=== PATIENT | female | born 1955 | race Caucasian/White ===

== ENCOUNTER 2016-08-28 10:14 | Outpatient (CLI) | payer OTHER ==
--- NOTE | 2016-08-29 13:20 | PAIN CLINIC PROGRESS NOTES ---
REFERRING PHYSICIAN: Dr. David Fraser REASON FOR VISIT: I had the opportunity of following up with Velma Harrington today as an outpatient at [facility]. Her neck pain has completely resolved. At this point, she is doing very well. She has no complaints of neck pain. She has some intermittent low back pain if she drives long distances , but really, overall, I think Velma is doing very well. I did review her lumbar images and she has a small disk protrusion at T11-T12 and some spondylolytic changes of the lumbar spine but really no evidence of disk herniation or spinal neuroforaminal stenosis. PLAN: At this point, I have talked to her about back stretching exercises. I have talked her about activity pacing and use of a lumbar support pillow when driving long distances in the car and that I would be glad to follow her up if her symptoms should worsen or reoccur here at [facility]. Dr. Fraser, thank you very much for allowing me to take part in the care of this nice lady. I am very pleased with her response and that we were able to get her MRI performed. cc: Dr. David ELLISON
== END 2016-08-28 10:15 ==
LOC: OUT 10:14
PROVIDERS: ATTEND Anesthesiology Pain Medicine
DX: M54.2 Cervicalgia (principal); M54.9 Dorsalgia, unspecified
CPT/HCPCS: 99213

== ENCOUNTER 2017-03-12 10:56 | Outpatient (CLI) | payer OTHER ==
--- NOTE | 2017-03-13 11:06 | PAIN CLINIC PROGRESS NOTES ---
REASON FOR VISIT: Velma follows up with me today. She was seen 1 year ago for right-sided facet medial branch blocks at C3, C4, C5, and C6. She said she had almost a year of relief but the symptoms are returning primarily on the right side in the upper portion of the neck over C3, C4, C5, and C6. She is also complaining of pain at the cervicothoracic junction at C7 and T1. She has some complaints at the cervicothoracic junction on the left side but most of the left side of the cervical spine is not symptomatic at this point, and she has good range of motion to the left and limited range of motion to the right today on exam. ASSESSMENT: Cervical spondylosis at C3 through C7-T1. PLAN: I talked to her about repeating facet medial branch blocks and she tells me that she feels ill and that she has been having sinusitis and chest congestion and she is on Levaquin, which she began almost a month ago after having an upper tooth extracted, and she would like recover from this before having any procedure done. I am in full agreement; and at this point, I will follow her up for right-sided C3 through C7-T1 facet medial branch blocks with IV sedation or monitored anesthesia care due to pain complaints. cc: Dr. David ELLISON
== END 2017-03-12 10:57 ==
LOC: OUT 10:56
PROVIDERS: ATTEND Anesthesiology Pain Medicine
DX: M47.892 Other spondylosis, cervical region (principal)
CPT/HCPCS: 99213; G0463

== ENCOUNTER 2017-07-10 13:14 | Outpatient (CLI) | payer OTHER ==
--- NOTE | 2017-07-11 11:39 | PAIN CLINIC PROGRESS NOTES ---
REASON FOR VISIT: Ms. Harrington follow up with me today and her neck is improved, as is her thoracic spine. She underwent right-sided C4, C5, C6, C7, T1 and T2 facet medial branch blocks for widespread right-sided cervicalgia/neck pain. She also has a history of back pain and she is much better today. She says she still has some intermittent both thoracic and low back pain. I reviewed her films and she has some increased thoracic kyphosis and some right-sided T5 neural foraminal narrowing but no evidence for spinal stenosis. Some spondylolytic changes of the thoracic spine. She also has marked increased curvature of the lumbar spine with lumbar spondylolytic changes consistent with lumbar spondylosis. PLAN: At this point, I am not recommending any interventional treatment. I have recommended exercise. I have talked about activity pacing. I am going to change her from cyclobenzaprine to Robaxin and see how she does. Follow up as necessary. cc: Dr. Davdi ELLISON
== END 2017-07-10 13:15 ==
LOC: OUT 13:14
PROVIDERS: ATTEND Anesthesiology Pain Medicine
DX: M47.016 Anterior spinal artery compression syndromes, lumbar region (principal)
CPT/HCPCS: 99213

== ENCOUNTER 2018-04-08 14:38 | Outpatient (CLI) | payer OTHER ==
--- NOTE | 2018-04-08 15:27 | Diagnostic Imaging Report ---
LIBIA ABREU [facility] [id number] Pending Sale To [facility] [address] [place] [address]. [id number] Report Submission Date: Apr 08, 2018 3:21:30 PM SENIOR QUALITY MANAGER Patient Study Name: WINIFRED QUIROZ Date: Apr 08, 2018 2:44:30 PM SENIOR QUALITY MANAGER Modality Type: DX Gender: F Description: PELVIS : 53 Institution: [facility] Physician: LIBIA ABREU Examination: Plain film pelvis/hips History: PAIN IN RIGHT HIP RADIATING DOWN LEG POST FALL 3 YEARS AGO. XRAY AT TIME SHOWED NO INJURIES, PAIN CONTINUES TO GET WORSE WITH USE. (Hx) Comparison exams: None provided Findings: 3 view of the pelvis and hips demonstrate normal cortical margins. No fracture. No dislocation. Superior and inferior pubic rami and iliac wings are without abnormality. Lumbar spine degenerative changes. Pelvic phleboliths. Impression: No acute appearing osseous process. Electronically signed on Apr 08, 2018 3:21:30 PM SENIOR QUALITY MANAGER by: Delroy ELLISON
== END 2018-04-08 14:40 ==
LOC: RAD 14:38
PROVIDERS: ATTEND Anesthesiology Pain Medicine
DX: M25.551 Pain in right hip (principal); M25.552 Pain in left hip
CPT/HCPCS: 73521

== ENCOUNTER 2018-04-09 12:23 | Outpatient (CLI) | payer OTHER ==
[~2018-04-09 12:23] MED LIST: 0.9 % SODIUM CHLORIDE PF 10 ML VIAL IJ ONE; KETAMINE HCL 10 MG/ML ONE; LIDOCAINE HCL 2% PF 100MG/5ML VIAL IJ ONE; MIDAZOLAM HCL 2 MG/2 ML VIAL ONE; SALINE FLUSH 10 ML DISP.SYRIN IVF ONE; TRIAMCINOLONE ACETONID 40MG/ML VIAL ONE
--- NOTE | 2018-04-15 14:05 | CERVICAL ESI WITH FLUORO ---
SUBJECTIVE: Ms. Harrington follows up today with a history of cervical stenosis and cervical spondylosis. She is having neck pain and bilateral weakness in the upper arms. She presents for a cervical epidural steroid injection. She is very nervous and anxious today. She is afraid she will not be able to hold still and is requesting sedation. I am going to request monitored anesthesia care for anxiety and discomfort. ANESTHESIA: Monitored anesthesia care. OBJECTIVE: Right C6-C7 epidural steroid injection with fluoroscopic guidance. DESCRIPTION OF THE PROCEDURE: The risks and benefits were discussed with the patient, including the risks of infection, bleeding, nerve injury including paralysis, and headache. Furthermore, I discussed the risk of steroid exposure causing hyperglycemia, hypertension, osteoporosis, or increased infectious risks. The patient understood these risks and agreed to proceed. Consent was obtained. Under monitored anesthesia care, a sterile prep and drape were applied. The patient was placed prone on the fluoroscopy table with a pillow underneath the chest to afford slight anterior flexion of the cervical spine. A Tuohy epidural needle was inserted with a right paramedian approach at the C6-C7 level. The position of the needle was verified with AP and lateral fluoroscopic views. The needle was advanced with a normal saline [id number]-sv-[id number] technique until slyy-pn-hrayzojtrz was obtained. On obtaining pzal-eo-wzwcyazerx to normal saline it was verified that there was no aspiration of CSF or blood. At this point, Omnipaque 240 myelogram dye was injected into the cervical epidural space. It was verified with fluoroscopic views that the dye was located within the epidural space in the desired distribution. At this point, the medication was injected into the cervical epidural space. The stylet was replaced in the needle and the needle was removed from the neck. The neck was cleaned and a bandage was applied over the injection site. The patient tolerated the procedure well and was monitored afterwards for a total of 20 minutes during which time the vital signs remained stable and no adverse sequelae were experienced. The patient was discharged home in good condition. Prior to discharge the patient was given discharge instructions. ASSESSMENT: Cervical radiculitis. PLAN: Right C6-C7 epidural steroid injection with fluoroscopic guidance today. FOLLOW UP: Return to clinic if problems develop or worsen. cc: Dr. David ELLISON
== END 2018-04-09 12:25 ==
LOC: OUT 12:23
PROVIDERS: ATTEND Anesthesiology Pain Medicine
DX: M54.12 Radiculopathy, cervical region (principal)
CPT/HCPCS: 62321; J2001; J2250; J3301; Q9966

== ENCOUNTER 2019-03-25 15:57 | Emergency (ER) | payer OTHER ==
--- NOTE | 2019-03-25 16:25 | ED Physician Documentation ---
General Adult - HISTORIAN Historian: patient - HPI Stated Complaint: ear pain left Chief Complaint: Ear Complaints Onset: days ago (6) Timing: still present Severity: moderate Further Comments: yes (she is here for left ear pain x several weeks. She states she has been seen 3 different providers. She had been given an antibiotic and she was seen the next day in ER due to an allergic reaction. She states she did drive here today to see Dr Fraser and she was told to come back later so she decided to be seen in the ER. Her pulse rate "is always high and I havent taken my med for a few days" denies any shortness of breath. She states she feels her ear is from a sinus headache which she has been treating with OTC meds for several days. Subsequently she notes she has a bad tooth that also give pain occasionally) - ROS CONST: recent illness EYES/ENT: denies: sore throat CVS/RESP: denies: chest pain, shortness of breath GI/: denies: vomiting, nausea MS/SKIN/LYMPH: none NEURO/PSYCH: headache. denies: dizziness - PAST HX Past History: other (tachycardia ) Surgeries/Procedures: none Allergies/Adverse Reactions: Allergies Allergy/AdvReac Type Severity Reaction Status Date / Time azithromycin Allergy Severe Hives Verified 03/25/19 16:29 Penicillins Allergy Severe Hives Verified 03/25/19 16:29 doxycycline Allergy Verified 03/25/19 16:29 - SOCIAL HX Smoking History: non-smoker Alcohol Use: none Drug Use: none - FAMILY HX Family History: No - REVIEWED ASSESSMENTS Nursing Assessment Reviewed: Yes Vitals Reviewed: Yes General Adult Physical Exam - PHYSICAL EXAM GENERAL APPEARANCE: no distress EENT: eye inspection normal, abnormal TM (left red and canal redness with swelling ), dry mucous membranes, dullness NECK: normal inspection RESPIRATORY: no resp distress, chest non-tender, breath sounds normal CVS: reg rate & rhythm, heart sounds normal, equal pulses, no murmur ABDOMEN: soft, normal bowel sounds, no distension BACK: normal inspection, no CVA tenderness SKIN: warm/dry, normal color EXTREMITIES: non-tender, normal range of motion, no evidence of injury, no edema NEURO: oriented X3 Discharge Clincal Impression: Otitis media Qualifiers: Otitis media type: suppurative Chronicity: acute Laterality: left Recurrence: non-recurrent Spontaneous tympanic membrane rupture: without spontaneous rupture Qualified Code(s): H66.002 - Acute suppurative otitis media without spontaneous rupture of ear drum, left ear Referrals: David Fraser MD [Primary Care Provider] - 2 Days Comments: 1. Azithromycin 500 mg take today and 250 mg days 2-5 2. Increase fluids 3. Follow up with PCP in 2 days 4. Return to ER for any increased concerns Condition: Stable Disposition: 01 HOME, SELF-CARE Decision to Admit: NO Date of Decison to Admit: 03/25/19 Decision Time: 18:17
[2019-03-25 16:53] LABS: BASOPHILS % 0.5 % (0.0-1.5); NEUTROPHILS # 1.9 # k/uL (1.4-7.7)
[2019-03-25] MEDS: 0.9 % SODIUM CHLORIDE 1,000 ML IV ONE (16:59)
[2019-03-25 17:04] LABS: eGFR (Non-African) > 60
[2019-03-25] MEDS: POTASSIUM CHLORIDE 20 MEQ TABLET.ER ONE (17:55)
[2019-03-25] MEDS: POTASSIUM CHLORIDE 10 MEQ TABLET.ER PO ONE (17:56)
[2019-03-25 18:17] VITALS: BP 151/91
== END 2019-03-25 18:00 | disposition home or self-care (01) ==
LOC: ED 15:57
DX: H66.002 Acute suppurative otitis media without spontaneous rupture of ear drum, left ear (principal)
CPT/HCPCS: 80053; 85025; 93005; 96360; 99283; 99284; A9270; J7030; S1016